=== PATIENT | male | born 1975 | race Hispanic/Latino ===

== ENCOUNTER 2019-09-30 23:24 | Emergency (ER) | payer SELFPAY ==
[2019-10-01] MEDS ORDERED: diphenhydrAMINE 25 MG CAP ONE (00:16)
[2019-10-01] MEDS ORDERED: predniSONE 20 MG TAB ONE (00:17)
== END 2019-10-01 00:28 | disposition home or self-care (01) ==
LOC: ERS 23:24
DX: L50.0 Allergic urticaria (principal); T37.5X5A Adverse effect of antiviral drugs, initial encounter
CPT/HCPCS: 99282; J7512; Q0163

== ENCOUNTER 2020-01-12 15:00 | Emergency (ER) | payer SELFPAY ==
[~2020-01-12 15:00] MED LIST: Iopamidol-370 76% 500 ML 1 ML ONE
[2020-01-12] MEDS ORDERED: Ketorolac Tromethamine 30 MG/ML VIAL ONE (15:26)
[2020-01-12 15:28] LABS: #Eosinphils 0.3 thou/uL (0.0-0.7); #Lymphocytes 2.2 thou/uL (1.20-3.40); #Monocytes 0.5 thou/uL (0.11-0.59); #Neutrophils 5.4 thou/uL (1.40-6.50); %Basophils 0.1 % (0.0-1.0); %Eosinophils 3.5 % (0.0-10.0); %Lymphocytes 26.2 % (21.0-51.0); %Monocytes 5.9 % (0.0-10.0); %Neutrophils 64.2 % (42.0-75.0); Mean Corpuscular HGB CONC 33.1 g/dL (32.0-36.0); Mean Corpuscular Hemoglobin 30.6 pg (27.0-31.0); Mean Corpuscular Volume 92.4 fL (78.0-98.0); Mean Platelet Volume 7.8 fL (7.4-10.4); Platelet Count 283 thou/uL (130-400); RBC Distribution Width 12.5 % (11.5-14.5); Red Blood Cell (RBC) Count 5.24 mill/uL (4.70-6.10); White Blood Cell (WBC) Count 8.3 thou/uL (4.8-10.8)
[2020-01-12 15:46] LABS: Bilirubin Negative (Negative); Blood, Urine Negative (Negative); Clarity Clear (Clear); Glucose, Urine (Dipstick) Normal (Negative); Leukocyte Negative Leu/uL (Negative); Nitrite Negative (Negative); Protein, Urine (Dipstick) 10 mg/dL (Neg-Trace); Urobilinogen Normal mg/dL (Less than 2)
[2020-01-12 15:49] LABS: ALT (SGPT) 50 U/L (8-55); AST (SGOT) 26 U/L (5-34); Albumin 4.5 g/dL (3.5-5.0); Alkaline Phosphatase 92 U/L (40-110); Anion Gap 12 mmol/L (10-20); BUN (Urea Nitrogen) 14 mg/dL (8.9-20.6); Bilirubin, Total 0.4 mg/dL (0.2-1.2); Calc. Creatinine Clearance 0 mL/min (70-130); Calcium 9.5 mg/dL (7.8-10.44); Carbon Dioxide 27 mmol/L (22-29); Chloride 105 mmol/L (98-107); Estimated GFR-MDRD 65; Globulin 3.1 g/dL (2.4-3.5); Glucose 83 mg/dL (70-105); Lipase 62 U/L (8-78); Potassium 3.6 mmol/L (3.5-5.1); Protein, Total 7.6 g/dL (6.0-8.3); Sodium 140 mmol/L (136-145)
--- NOTE | 2020-01-12 18:38 | CT ---
CT ABDOMEN AND PELVIS WITH CONTRAST: 01/12/20 HISTORY: Right lower quadrant pain. COMPARISON: None. FINDINGS: The lung bases are clear. No pericardial effusion. Mild diffuse hepatic steatosis. The appendix is visualized and is normal. No free intraperitoneal gas or fluid. No dilated loops of large or small bowel. No retroperitoneal or periaortic adenopathy. No hydronephro sis. Adrenal glands are unremarkable. No acute osseous abnormality. IMPRESSION: 1. No acute inflammatory process in the abdomen or pelvis. 2. Normal appendix. 3. Mildly thickened superior rectum circumferentially with mildly engorged vessels. Findings can be seen with proctitis and less likely a mass. POS: HOME
== END 2020-01-12 17:32 | disposition home or self-care (01) ==
LOC: ERS 15:00
DX: R10.31 Right lower quadrant pain (principal); F17.210 Nicotine dependence, cigarettes, uncomplicated
CPT/HCPCS: 74177; 80053; 83690; 85025; 96374; J1885; Q9967